=== PATIENT | male | born 1995 | race Caucasian/White ===

== ENCOUNTER 2017-12-17 01:35 | Emergency (ER) | payer SELFPAY ==
--- NOTE | 2017-12-17 01:40 | EDPHY ---
H & P Time Seen by Provider: 12/17/17 01:38 HPI/ROS: HPI CHIEF COMPLAINT: Medical clearance for care home, left foot abrasion HISTORY OF PRESENT ILLNESS: Patient very pleasant 22-year-old male, otherwise healthy no significant medical history does not take any daily medications he presents emergency room with a deep abrasion to his left foot. He states he was recently scabbed and he broke loose the scab. He denies any fever, denies any significant pain. He is under arrest and brought here for medical clearance for care home. Past Medical History: Denies significant medical history Past Surgical History: Denies significant surgical history Social History: Denies daily drugs alcohol tobacco. Family History: Noncontributory ROS REVIEW OF SYSTEMS: A comprehensive 10 point review of systems is otherwise negative aside from elements mentioned in the history of present illness. Exam Constitutional appears nontoxic triage nursing summary reviewed, vital signs reviewed, awake/alert. Eyes normal conjunctivae and sclera, EOMI, PERRLA. HENT normal inspection, atraumatic, moist mucus membranes, no epistaxis, neck supple/ no meningismus, no raccoon eyes. Respiratory clear to auscultation bilaterally, normal breath sounds, no respiratory distress, no wheezing. Cardiovascular rate normal, regular rhythm, no murmur, no edema, distal pulses normal. Gastrointestinal soft, non-tender, no rebound, no guarding, normal bowel sounds, no distension, no pulsatile mass. Genitourinary no CVA tenderness. Musculoskeletal no midline vertebral tenderness, full range of motion, no calf swelling, no tenderness of extremities, no meningismus, good pulses, neurovascularly intact. Skin abrasion to the left lateral foot dorsum of the foot. No significant laceration. Neurologic awake, alert and oriented x 3, AAOx3, moves all 4 extremities equally, motor intact, sensory intact, CN II-XII intact, normal cerebellar, normal vision, normal speech. Psychiatric normal mood/affect. Heme/Lymph/Immune no lymphadenopathy. Differential Diagnosis: Includes but is not limited to in a particular order abrasion, soft tissue injury Medical Decision Making: Plan for this patient will copiously irrigating clean his abrasion out and apply dressing. And then he can be medically cleared for care home. Source: Patient, Police Departure - Departure Disposition: Home, Routine, Self-Care Clinical Impression: Abrasion Condition: Good Instructions: Abrasion (ED) Additional Instructions: 1. Medically cleared for care home. Referrals: NONE *PRIMARY CARE P,. [Primary Care Provider] - As per Instructions
[2017-12-17 01:49] VITALS: BP 137/81
== END 2017-12-17 02:07 | disposition home or self-care (01) ==
DX: S90.812A Abrasion, left foot, initial encounter (principal); X58.XXXA Exposure to other specified factors, initial encounter